=== PATIENT | male | born 1965 | race Caucasian/White ===

== ENCOUNTER 2017-08-15 10:41 | Outpatient (CLI) | payer OTHER ==
[~2017-08-15 10:41] MED LIST: BACTROBAN OINT22 GM TP; DICLOFENAC SODI50 MG PO; INTESTINEX1 CAP PO; KEFLEX500 MG PO; METFORMIN HCL500 MG; METFORMIN HCL500 MG PO; OSEL75CA PO; SEPTRA DS TABLE1 TAB PO; TAMS0.4C PO; TUSSI PRES-B L120 M1 PO; ULTRACET PO
== END 2017-08-15 10:56 | disposition home or self-care (01) ==
LOC: RAD 10:41
DX: M25.561 Pain in right knee (principal); M79.672 Pain in left foot; E66.01 Morbid (severe) obesity due to excess calories; E78.2 Mixed hyperlipidemia; I10 Essential (primary) hypertension; R42 Dizziness and giddiness

== ENCOUNTER 2017-11-26 15:34 | Emergency (ER) | payer OTHER ==
[~2017-11-26] VITALS: Ht 167.6 cm; Wt 142.9 kg
== END 2017-11-26 20:23 | disposition home or self-care (01) ==
LOC: ER 15:34
DX: M54.5 Low back pain (principal)

== ENCOUNTER 2018-03-15 11:55 | Emergency (ER) | payer OTHER ==
[~2018-03-15] VITALS: Ht 165.1 cm; Wt 145.1 kg
[2018-03-15] MEDS ORDERED: ZITHROMAX TRI-500 MG PO (15:37)
[2018-03-15] MEDS ORDERED: MUCINEX DM ER1 EAC1 PO (15:37)
[2018-03-15] MEDS ORDERED: AIRBORNE EFFER1 EACH PO (15:37)
[2018-03-15] MEDS ORDERED: IPRAT-ALBUT 0.5-3 ML IH (15:37)
[2018-03-15] MEDS ORDERED: PROMETH-CODEIN 65 ML PO (15:37)
[2018-03-15] MEDS ORDERED: KETO10TA2 PO (15:37)
== END 2018-03-15 17:20 ==
LOC: ER 11:55
DX: J09.X2 Influenza due to identified novel influenza A virus with other respiratory manifestations (principal); H66.93 Otitis media, unspecified, bilateral

== ENCOUNTER 2019-01-28 11:02 | Emergency (ER) | payer OTHER ==
[~2019-01-28] VITALS: Ht 167.6 cm; Wt 163.3 kg
[~2019-01-28 11:02] MED LIST changes: +AIRBORNE EFFER1 EACH PO; +IPRAT-ALBUT 0.5-3 ML IH; +KETO10TA2 PO; +MUCINEX DM ER1 EAC1 PO; +PROMETH-CODEIN 65 ML PO; +ZITHROMAX TRI-500 MG PO
[2019-01-28] MEDS ORDERED: CLARITIN10 M1 (11:20)
== END 2019-01-28 14:58 | disposition home or self-care (01) ==
LOC: ER 11:02
DX: J45.998 Other asthma (principal)

== ENCOUNTER 2021-01-28 16:50 | Emergency (ER) | payer OTHER ==
[~2021-01-28] VITALS: Ht 165.1 cm; Wt 166.0 kg
[~2021-01-28 16:50] MED LIST changes: +CLARITIN10 M1
== END 2021-01-28 20:19 | disposition home or self-care (01) ==
LOC: ER 16:50
DX: K42.9 Umbilical hernia without obstruction or gangrene (principal); K40.90 Unilateral inguinal hernia, without obstruction or gangrene, not specified as recurrent; R10.9 Unspecified abdominal pain

== ENCOUNTER 2021-01-29 10:45 | Outpatient (CLI) | payer OTHER | END 2021-01-29 10:52 | disposition home or self-care (01) | LOC: RAD 10:45 | PROVIDERS: ATTEND Physical Medicine & Rehabilitation | DX: M43.8X7 Other specified deforming dorsopathies, lumbosacral region (principal); M54.59 Other low back pain ==

== ENCOUNTER 2021-10-31 08:34 | Emergency (ER) | payer OTHER ==
[~2021-10-31] VITALS: Ht 167.6 cm; Wt 149.7 kg
[2021-10-31] MEDS ORDERED: GLUMETZA1000 MG PO (08:50)
[2021-10-31] MEDS ORDERED: HORIZANT600 MG PO (08:51)
== END 2021-10-31 14:13 | disposition home or self-care (01) ==
LOC: ER 08:34
DX: G43.809 Other migraine, not intractable, without status migrainosus (principal); G44.209 Tension-type headache, unspecified, not intractable; I10 Essential (primary) hypertension; E11.9 Type 2 diabetes mellitus without complications; Z79.84 Long term (current) use of oral hypoglycemic drugs; G47.30 Sleep apnea, unspecified

== ENCOUNTER 2022-04-05 10:13 | Outpatient (CLI) | payer OTHER ==
[~2022-04-05 10:13] MED LIST changes: +GLUMETZA1000 MG PO; +HORIZANT600 MG PO
== END 2022-04-05 10:41 | disposition home or self-care (01) ==
LOC: RAD 10:13
DX: R05.9 Cough, unspecified (principal)

== ENCOUNTER 2022-10-05 05:42 | Emergency (ER) | payer OTHER ==
[~2022-10-05] VITALS: Ht 165.1 cm; Wt 153.8 kg
[2022-10-05] MEDS ORDERED: DICLOFENAC SODI75 MG PO (09:20)
== END 2022-10-05 09:37 | disposition home or self-care (01) ==
LOC: ER 05:42
DX: M25.561 Pain in right knee (principal)

== ENCOUNTER 2022-11-28 22:52 | Emergency (ER) | payer OTHER ==
[~2022-11-28] VITALS: Ht 172.7 cm; Wt 145.1 kg
[~2022-11-28 22:52] MED LIST changes: +DICLOFENAC SODI75 MG PO
== END 2022-11-29 02:47 | disposition home or self-care (01) ==
LOC: ER 22:52
DX: M25.561 Pain in right knee (principal)

== ENCOUNTER 2022-12-14 06:52 | Outpatient (CLI) | payer OTHER | END 2022-12-14 06:53 | disposition home or self-care (01) | LOC: LAB 06:52 | DX: R09.2 Respiratory arrest (principal) ==

== ENCOUNTER 2022-12-14 07:44 | Outpatient (CLI) | payer OTHER | END 2022-12-14 07:55 | disposition home or self-care (01) | LOC: RAD 07:44 | PROVIDERS: ATTEND Internal Medicine Cardiovascular Disease | DX: Z01.810 Encounter for preprocedural cardiovascular examination (principal); I50.42 Chronic combined systolic (congestive) and diastolic (congestive) heart failure; I20.9 Angina pectoris, unspecified; I10 Essential (primary) hypertension; R00.2 Palpitations; E66.01 Morbid (severe) obesity due to excess calories; R73.01 Impaired fasting glucose; M79.604 Pain in right leg ==

== ENCOUNTER 2023-01-16 06:19 | Outpatient (CLI) | payer OTHER ==
[2023-01-16 06:43] LABS: ABG PH 7.423 (7.35-7.45); ABG PO2 86.5 mmHg (80-100); BASE EXCESS -1.4 mmol/l; BICARBONATE 22.3 mmol/l (23-25); SaO2 96.7 %; Tco2 23.4 mmol/l
[2023-01-16 06:44] LABS: allen test SATISFACTORY; o2 21 %; puncture site RADIAL LEFT
== END 2023-01-16 06:20 | disposition home or self-care (01) ==
LOC: LAB 06:19
PROVIDERS: ATTEND Surgery
DX: R09.2 Respiratory arrest (principal)

== ENCOUNTER 2023-06-25 00:06 | Emergency (ER) | payer OTHER ==
[~2023-06-25] VITALS: Ht 165.1 cm; Wt 111.1 kg
== END 2023-06-25 04:02 | disposition home or self-care (01) ==
LOC: ER 00:07
DX: K59.00 Constipation, unspecified (principal); I10 Essential (primary) hypertension; Z98.890 Other specified postprocedural states